=== PATIENT | female | born 1985 | race Caucasian/White ===

== ENCOUNTER 2019-01-12 17:28 | Emergency (ER) | payer MEDICAID ==
[~2019-01-12] VITALS: Ht 170.2 cm; Wt 113.6 kg
--- NOTE | 2019-01-12 18:22 | NUR ---
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
--- NOTE | 2019-01-12 18:37 | NUR ---
VINTENT HAS BEEN TAKEN TO X RAY
[2019-01-12] MEDS ORDERED: ONDANSETRON ODT 4 MG ONE (18:44)
[2019-01-12] MEDS ORDERED: IBUPROFEN 600 MG TABLET ONE (18:45)
[2019-01-12] MEDS ORDERED: IBUPROFEN 600 MG TABLET PO ONE (19:00)
[2019-01-12] MEDS ORDERED: ONDANSETRON ODT 4 MG PO ONE (19:00)
[2019-01-12 19:03] LABS: RAPID INFLUENZA A Negative (Negative); RAPID INFLUENZA B Negative (Negative)
[2019-01-12 19:10] LABS: CULTURE INDICATED? YES; MICROSCOPIC INDICATED
[2019-01-12 19:25] VITALS: BP 117/76
--- NOTE | 2019-01-12 19:26 | NUR ---
Note amairani in EDM - 01/12/19 at 1934 by NICKOLAS PAITENT IN ROOM RESTING. DR EMERSON IN WITH PATIENT. EXPLAINED TO THE PAITENT HE HAS A MASS ON HIS COLON AND IT NEEDS TO BE REMOVED AND TESTED. PATIENT STATED HE DID NOT WANT TO STAY IN THE HOSPITAL TONIGHT. HOWEVER, HE WILL BE ADMITTED. FAMILY IS IN ROOM.
[2019-01-12] MEDS ORDERED: CIPROFLOXACIN 500 MG TABLET PO ONE (20:00)
[2019-01-12] MEDS ORDERED: CIPROFLOXACIN 500 MG TABLET ONE (20:02)
== END 2019-01-12 20:24 | disposition home or self-care (01) ==
LOC: ED 20:05
DX: N30.01 Acute cystitis with hematuria (principal); F17.200 Nicotine dependence, unspecified, uncomplicated; R11.2 Nausea with vomiting, unspecified; R19.7 Diarrhea, unspecified; R05 Cough
CPT/HCPCS: 71046; 81001; 87086; 87400; 99284; Q0162